=== PATIENT | male | born 1955 | race Asian ===

== ENCOUNTER 2020-08-24 22:49 | Emergency (ER) | payer MEDICAID ==
[~2020-08-24] VITALS: Ht 162.6 cm; Wt 67.1 kg
[2020-08-24 23:03] VITALS: BP 158/89
== END 2020-08-25 00:13 | disposition home or self-care (01) ==
LOC: ER 22:54
DX: B34.9 Viral infection, unspecified (principal)
CPT/HCPCS: 71045-TC